=== PATIENT | female | born 1940 | race Caucasian/White ===

== ENCOUNTER 2017-05-12 21:07 | Emergency (ER) | payer OTHER, BC ==
[~2017-05-12] VITALS: Ht 162.6 cm; Wt 72.8 kg
[2017-05-12 23:13] LABS: HEMATOCRIT 33.6 % (36.0-46.0); MCHC 32.7 G/DL (30.0-36.0); MCV 97.7 FL (83-99); PLATELET COUNT 262 K/uL (156-360); RBC DIS.WIDTH-CV 13.8 % (11.8-14.6); RBC DIS.WIDTH-SD 49.9 % (39-53); RED BLOOD COUNT 3.44 M/uL (3.80-5.20); WHITE BLOOD COUNT 5.7 K/uL (4.1-10.2)
[2017-05-12 23:23] LABS: CHLORIDE 108 mEq/L (99-109); POTASSIUM 3.7 mEq/L (3.7-5.4); SODIUM 143 mEq/L (136-147)
[2017-05-12 23:24] LABS: GLUCOSE 93 mg/dL (70-99)
[2017-05-12 23:28] LABS: CREATININE 1.7 mg/dL (0.6-1.3)
[2017-05-12 23:29] LABS: UREA NITROGEN (BUN) 16 mg/dL (9-23)
[2017-05-12 23:32] LABS: GFR ESTIMATE (CALCULATED) 31 mL/min/
[2017-05-12 23:38] VITALS: BP 140/70
== END 2017-05-12 23:40 | disposition home or self-care (01) ==
LOC: EME 21:07
PROVIDERS: Physician Assistant
DX: L98.9 Disorder of the skin and subcutaneous tissue, unspecified (principal); I10 Essential (primary) hypertension; E78.5 Hyperlipidemia, unspecified; J44.9 Chronic obstructive pulmonary disease, unspecified; K21.9 Gastro-esophageal reflux disease without esophagitis; F32.9 Major depressive disorder, single episode, unspecified; Z87.891 Personal history of nicotine dependence; Z88.0 Allergy status to penicillin
CPT/HCPCS: 80048; 85027; 99281; 99284